=== PATIENT | male | born 1970 | race American Indian/Alaskan Native ===

== ENCOUNTER 2022-01-15 10:18 | Emergency (ER) | payer MEDICARE, MEDICAID, OTHER, SELFPAY ==
[2022-01-15 10:24] VITALS: BP 184/102; PULSE 90; RESP 14; TEMP 36.7; O2SAT 97; BMI 36.2
--- NOTE | 2022-01-15 10:26 | DI.RAD.S_ITS ---
PROCEDURE: XR CHEST 1V INDICATIONS: chest pain TECHNIQUE: One view of the chest was acquired. COMPARISON: [facility], , CHEST 1 VIEW, 08/21/2016, 18:38. FINDINGS: Surgical changes and devices: None. Lungs and pleura: Lungs are clear. No pleural effusions or pneumothorax. Mediastinum: Mediastinal contours appear normal. Heart size is normal. Bones and chest wall: No suspicious bony lesions. Overlying soft tissues appear unremarkable. IMPRESSION: No acute cardiopulmonary pathology. Dictated by: Abdias Chinchilla M.D. on 01/15/2022 at 10:52 Approved by: Abdias Chinchilla M.D. on 01/15/2022 at 10:52
[2022-01-15 10:43] LABS: Prothrombin Time 11.4 SECONDS (10.1-12.7)
[2022-01-15 10:44] LABS: Add Manual Diff / Slide Review NO; Basophils Absolute Auto 0 /uL (0-100); Basophils Percent Auto 0.4 % (0-2); Eosinophils Absolute Auto 300 /uL (0-450); Eosinophils Percent Auto 4.2 % (2-4); Hematocrit 41.3 % (41-53); Hemoglobin 14.4 g/dL (13.5-17.5); Lymphocytes Absolute Auto 3400 /uL (1100-4500); Lymphocytes Percent Auto 43.5 % (25-40); Mean Corpuscular HGB Conc 34.8 % (30-36); Mean Corpuscular Hemoglobin 29.7 PG (26-34); Mean Corpuscular Volume 85.4 fL (80-100); Monocytes Absolute Auto 600 /uL (0-900); Monocytes Percent Auto 7.4 % (3-14); Neutrophils Absolute Auto 3400 /uL (1500-7000); Neutrophils Percent Auto 44.5 % (50-75); Platelet Count 318 X10^3/uL (150-400); Red Blood Cell Count 4.84 X10^6/uL (4.5-5.9); Red Cell Distribution Width 13.3 % (11.6-14.8); White Blood Cell Count 7.7 X10^3/uL (4.5-11.0)
[2022-01-15 10:46] LABS: PTT Partial Thromboplastin Tim 32 SECONDS (26.4-36.2)
[2022-01-15 10:47] LABS: Alanine Aminotransferase 26 IU/L (<50); Albumin 4.5 g/dL (3.5-5.0); Albumin Globulin Ratio 1.3 (1.0-2.8); Alkaline Phosphatase 93 U/L (38-126); Aspartate Aminotransferase 32 IU/L (17-59); BUN Creatinine Ratio 8.5 (6-22); Bilirubin Total 0.7 mg/dL (0.2-1.3); Blood Urea Nitrogen 12 mg/dL (9-20); Calcium 8.9 mg/dL (8.4-10.2); Carbon Dioxide 26 mmol/L (22-32); Chloride 106 mmol/L (98-107); Creatine Kinase 204 U/L (55-170); Globulin 3.5 g/dL (1.7-4.1); Glucose 125 mg/dL (70-100); HEMOLYSIS 26 (0-50); Lipase 129 U/L (23-300); Magnesium 2.1 mg/dL (1.6-2.3); Potassium 3.8 mmol/L (3.4-5.1); Sodium 141 mmol/L (137-145)
[2022-01-15 10:59] LABS: Troponin I < 0.012 ng/mL (0.01-0.034)
[2022-01-15 11:02] LABS: Creatine Kinase MB 2.06 ng/mL (<2.37)
--- NOTE | 2022-01-15 11:16 | ED_ITS ---
HPI - Chest Pain General Chief Complaint: Chest Pain Stated Complaint: Chest Pain Time Seen by Provider: 01/15/22 10:54 Source: patient Mode of arrival: EMS Limitations: no limitations History of Present Illness HPI narrative: Patient is a 51-year-old male who is here for evaluation of chest discomfort. He states the symptoms started last evening. I have been consistent since then but there are times when his been better than others. He was at the methadone clinic this morning. Did receive a dose of methadone. He stated that they noticed that he was complaining of chest discomfort so they advised he come to the emergency department. He did receive some nitroglycerin prior to arrival and he states this did help his chest discomfort somewhat. The time my evaluation his symptoms still there but not nearly as bad as they once were. No prior cardiac history. Does have a history of high blood pressure. He has not taken his blood pressure medications this morning. Related Data Home Medications Medication Instructions Recorded Confirmed promethazine 25 mg rectal PO #0 11/05/16 suppository (Phenergan) topiramate 25 mg tablet (Topamax) 25 mg #0 11/05/16 Previous Rx's Medication Instructions Recorded lisinopril 40 mg tablet 40 mg PO QDAY #30 tab 11/21/16 nicotine 14 mg/24 hr daily 14 mg TOPICAL QDAY #14 patch 11/21/16 transdermal patch nitroglycerin 0.4 mg sublingual 0.4 mg SUBLINGUAL Q5-15M PRN #30 01/15/22 tablet tab Allergies Allergy/AdvReac Type Severity Reaction Status Date / Time ketorolac [From TORADOL] Allergy Severe HIVES Verified 01/15/22 10:24 NSAIDS (Non-Steroidal Allergy Severe AIRWAY Verified 01/15/22 10:24 Anti-Inflamma CLOSES, [NSAIDS (NON-STEROIDAL SWELLING, ANTI-INFLAMMA] HIVES WITH TORADOL Review of Systems Constitutional Constitutional: Reports system reviewed and no additional complaints, except as documented Cardiovascular Cardiovascular: Reports system reviewed and no additional complaints, except as documented Respiratory Respiratory: Reports system reviewed and no additional complaints, except as do cumented Gastrointestinal Gastrointestinal: Reports system reviewed and no additional complaints, except as documented Musculoskeletal Musculoskeletal: Reports system reviewed and no additional complaints, except as documented Integumentary/Breasts Skin/Breast: Reports system reviewed and no additional complaints, except as documented Hematologic/Lymphatic On Anticoagulants: No Patient History Medical History Hypertension Social History Smoking Status: Unknown if ever smoked Smoking Status: Unknown if ever smoked alcohol intake frequency: holidays/special occasions only Substance Use Type: does not use Exam Initial Vital Signs Initial Vital Signs: Vital Signs Temperature 98.0 F 01/15/22 10:24 Pulse Rate 90 01/15/22 10:24 Respiratory Rate 14 01/15/22 10:24 Blood Pressure 184/102 H 01/15/22 10:24 Pulse Oximetry 97 01/15/22 10:24 HENMT Head: normal to inspection and normocephalic Resp Effort & Inspection: normal respiratory effort Auscultation: clear to auscultation bilaterally Cardio Rate: regular rate Rhythm: regular rhythm GI Inspection: normal to inspection Skin General: no rashes or lesions noted Neuro General: patient alert, patient awake, patient oriented x3 and moves all extremities Extrem General: normal to inspection and capillary refill normal Psych Appearance: grossly normal and well kempt Course Orders Ordered: ED Orders 01/15/22 10:25 EKG-12 Lead Stat 01/15/22 10:26 XR chest 1V Stat 01/15/22 10:37 Complete Blood Count AUTO DIFF Stat Comprehensive Metabolic Panel Stat Lipase Stat Magnesium Stat Partial Thromboplastin Time Stat Prothrombin Time INR Stat Troponin & CK Cardiac Panel Stat Vital Signs Vital signs: Vital Signs - 8 hr 01/15/22 11:46 Pulse Rate 79 Blood Pressure 152/95 H Pulse Oximetry 96 MDM - Chest Pain Lab Data Attestation: I reviewed the patient's lab results. Result diagrams: 01/15/22 10:37 01/15/22 10:37 Labs: Lab Results 01/15/22 01/15/22 01/15/22 Range/Units 10:37 10:37 10:37 WBC 7.7 (4.5-11.0) X10^3/uL RBC 4.84 (4.5-5.9) X10^6/uL Hgb 14.4 (13.5-17.5) g/dL Hct 41.3 (41-53) % MCV 85.4 (80-100) fL MCH 29.7 (26-34) PG MCHC 34.8 (30-36) % RDW 13.3 (11.6-14.8) % Plt Count 318 (150-400) X10^3/uL Neut % (Auto) 44.5 L (50-75) % Lymph % (Auto) 43.5 H (25-40) % [place] % (Auto) 7.4 (3-14) % Eos % (Auto) 4.2 H (2-4) % Baso % (Auto) 0.4 (0-2) % Neut # (Auto) 3400 (6702-2419) /uL Lymph # (Auto) 3400 (9180-6527) /uL [place] # (Auto) 600 (0-900) /uL Eos # (Auto) 300 (0-450) /uL Baso # (Auto) 0 (0-100) /uL PT 11.4 (10.1-12.7) SECONDS INR 1.0 (0.9-1.3) APTT 32 (26.4-36.2) SECONDS Sodium 141 (137-145) mmol/L Potassium 3.8 (3.4-5.1) mmol/L Chloride 106 (98-107) mmol/L Carbon Dioxide 26 (22-32) mmol/L BUN 12 (9-20) mg/dL Creatinine 1.42 H (0.66-1.25) mg/dL Estimated GFR 53.0 L (>60) mL/min BUN/Creatinine Ratio 8.5 (6-22) Glucose 125 H (70-100) mg/dL Calcium 8.9 (8.4-10.2) mg/dL Magnesium 2.1 (1.6-2.3) mg/dL Total Bilirubin 0.7 (0.2-1.3) mg/dL AST 32 (17-59) IU/L ALT 26 (<50) IU/L Alkaline Phosphatase 93 (38-126) U/L Total Creatine Kinase 204 H (55-170) U/L CK-MB (CK-2) 2.06 (<2.37) ng/mL CK-MB (CK-2) Rel Index 1.0 L (1.5-5.0) % Troponin I < 0.012 (0.01-0.034) ng/mL Total Protein 8.0 (6.3-8.2) g/dL Albumin 4.5 (3.5-5.0) g/dL Globulin 3.5 (1.7-4.1) g/dL Albumin/Globulin Ratio 1.3 (1.0-2.8) Lipase 129 (23-300) U/L Imaging Data Chest x-ray: Radiologist's Impression: [address] [address] XRay Report Signed Patient: Jesús Ruvalcaba Jr MR#: [id number] : 1970 Acct:[id number] Age/Sex: 51 / M Date of Service: 01/15/22 Loc: ED Accession Number: [id number] ?? Procedure: XR chest 1V Ordering Provider: Manuel Cruz D.O. PROCEDURE:? XR CHEST 1V ? INDICATIONS:? chest pain ? TECHNIQUE:? One view of the chest was acquired.? ? COMPARISON:? [facility], , CHEST 1 VIEW, 08/21/2016, 18:38. ? FINDINGS:? ? Surgical changes and devices:? None.? ? Lungs and pleura:? Lungs are clear.? No pleural effusions or pneumothorax.? ? Mediastinum:? Mediastinal contours appear normal.? Heart size is normal.? ? Bones and chest wall:? No suspicious bony lesions.? Overlying soft tissues appear unremarkable.? ? IMPRESSION:? No acute cardiopulmonary pathology. ? ? Dictated by: Abdias Chinchilla M.D. on 01/15/2022 at 10:52 ? ? Approved by: Abdias Chinchilla M.D. on 01/15/2022 at 10:52?? ECG Data Attestation: I personally reviewed and interpreted this ECG as follows: Prior ECG tracings: available for review Interpretation: Sinus rhythm Ventricular rate 81 Normal axis Normal QRS Normal QTC No ST T wave changes MDM Narrative Medical decision making narrative: Patient states he feels much better. His troponin is negative greater than 6 hours at the onset of his discomfort. No shortness of breath. Chest x-ray is unremarkable. Does have a history of high blood pressure and did not take his blood pressure medications this morning. He did seem to get some relief after nitroglycerin that was given to him in route here to the ER. Had a discussion with him regarding the symptoms. I did offer admission to the hospital for further risk stratification to include a stress test however the patient declined. He is alert oriented x3. GCS of 15. Not clinically intoxicated my opinion has the capacity to make decisions. He was able to expressed understanding the risks and benefits of admission in the hospital versus discharge home and follow-up with primary provider. Patient opted to follow-up with his primary provider. Will send home with nitroglycerin to use as needed. He was given strict return precautions. He expressed understanding and agreement. Discharge Plan Departure Patient Disposition: Home Clinical Impression: Chest pain, Hypertension Instructions: DI for Chest Pain Activity Restrictions/Additional Instructions: I do recommend that you continue to take all of your medications as directed. Given your presentation today I highly recommend that you contact your primary doctor to discuss further workup to include an outpatient stress test. Return to the emergency department for any new or worsening symptoms. Prescriptions: New nitroglycerin 0.4 mg tablet, sublingual 0.4 mg sublingual Q5-15M PRN (Reason: chest pain) Qty: 30 0RF Rx Instructions: do not exceed 3 doses per episode No Action topiramate [Topamax] 25 MG tablet 25 mg Qty: 0 0RF promethazine [Phenergan] 25 MG suppository PO Qty: 0 0RF nicotine 14 MG patch 24 hour 14 mg Topical QDAY Qty: 14 0RF lisinopril 40 MG tablet 40 mg PO QDAY Qty: 30 5RF Referrals: Fina Herring PA-C [Primary Care Provider] -
[2022-01-15 11:46] VITALS: BP 152/95; PULSE 79; O2SAT 96
== END 2022-01-15 11:55 | disposition home or self-care (01) ==
PROVIDERS: Emergency Provider Emergency Medicine; Family Provider Family Medicine; PCP Physician Assistant
DX: R07.9 Chest pain, unspecified (principal); I10 Essential (primary) hypertension; Z79.891 Long term (current) use of opiate analgesic
CPT/HCPCS: 71045; 80053; 82550; 82553; 83690; 83735; 84484; 85025; 85610; 85730; 93005; 99283; 99284